=== PATIENT | male | born 1990 | race American Indian/Alaskan Native ===

== ENCOUNTER 2016-05-15 03:57 | Emergency (ER) | payer OTHER ==
[2016-05-15 05:06] VITALS: BP 122/63
[2016-05-15] MEDS ORDERED: XYLOCAINE 1% MPF 5 mL INFILTRATI ONE (08:15)
--- NOTE | 2016-05-15 08:15 | Emergency Department Report ---
Abscess Boil HPI - HPI Chief Complaint: Skin/Abscess/Foreign Body Stated Complaint: ARM PAIN Time Seen by Provider: 05/15/16 08:07 Duration: 3 Days Location: Other (left axilla) Severity: Moderate History: Yes Pain (left axilla abscess), Yes Previous History (similar incident 1 month ago), No Fever, No Purulent Drainage, No Numbness, No Foreign Body, No Insect Bite HPI: Patient here reports he has abscess klt armpit that makes it hard to lift his arm. He denies any fever or chills. Him and incidental 1 month ago. Said he's been shaven any thinks this with causes it. Denies any [id number] medication. Home Medications: Previous Rx's Medication Instructions Recorded Last Taken Type Ciprofloxacin HCl [Ciloxan 0.3%] 2 drop OP Q4H #1 bottle 11/20/13 Unknown Rx HYDROcodone/APAP 5-325 [[place] 1 each PO Q6HR PRN #14 tablet 11/20/13 Unknown Rx 5/325] Ibuprofen [Motrin] 600 mg PO Q8H PRN #15 tablet 05/15/16 Unknown Rx Sulfamethoxazole/Trimethoprim 1 each PO BID #20 tablet 05/15/16 Unknown Rx [Bactrim DS TAB] Allergies/Adverse Reactions: Allergies Allergy/AdvReac Type Severity Reaction Status Date / Time No Known Allergies Allergy Unverified 03/29/13 03:28 ED Review of Systems ROS: Stated complaint: ARM PAIN Other details as noted in HPI Comment: All other systems reviewed and negative Constitutional: denies: chills, fever Respiratory: no symptoms reported Cardiovascular: denies: chest pain, palpitations, edema, syncope Musculoskeletal: denies: back pain, arthralgia Skin: other (abscess) ED Past Medical Hx - Past Medical History Previous Medical History?: Yes Hx Asthma: Yes - Surgical History Past Surgical History?: Yes Additional Surgical History: tonsilectomy - Family History Family history: no significant - Social History Smoking Status: Never Smoker Substance Use Type: Alcohol - Medications Home Medications: Home Medications Medication Instructions Recorded Confirmed Last Taken Type Ciprofloxacin HCl [Ciloxan 0.3%] 2 drop OP Q4H #1 bottle 11/20/13 Unknown Rx HYDROcodone/APAP 5-325 [[place] 1 each PO Q6HR PRN #14 tablet 11/20/13 Unknown Rx 5/325] Ibuprofen [Motrin] 600 mg PO Q8H PRN #15 tablet 05/15/16 Unknown Rx Sulfamethoxazole/Trimethoprim 1 each PO BID #20 tablet 05/15/16 Unknown Rx [Bactrim DS TAB] ED Abscess Boil Physical Exam - Exam General: Vital signs noted. No distress. Alert and acting appropriately. Size: 2 cm Exam: Yes Tenderness (left axilla), Yes Fluctuance (LT axilla), Yes Surrounding Cellulites/Erythema (LT axilla), Yes Normal Neurologic Exam, Yes Normal Circulation, No Lymphangitis, No Crepitation, No Heart Murmur Exam: Lungs: Clear to auscultate bilaterally no rhonchi wheezes or rales. EXT: No clubbing, cyanosis or edema. +2 pulses in all extremities. CV: Sinus bradycardia 52 and asymptomatic. S1 and S2. No murmur I & D Note - I & D Note I & D Note: Procedure note for incision and drainage: 2 x 2 centimeter abscess drained at left axilla. Area cleansed with iodine followed by normal saline. # 22-gauge needle used to inject 3 cc of lidocaine. #11 blade used make small 1 cm incision. Very scant amount of serous drainage noted. Iodoform packing placed all of by dry sterile dressing. Tetanus vaccine up-to-date. ED Course Vital Signs 05/15/16 05:03 Temperature 98.2 F Pulse Rate 52 L Respiratory 18 Rate Blood Pressure 122/63 O2 Sat by Pulse 99 Oximetry - Reevaluation(s) Reevaluation #1: 05/15/16 08:36 Patient stable see note for incision and drainage 05/15/16 08:36 Critical care attestation.: If time is entered above; I have spent that time in minutes in the direct care of this critically ill patient, excluding procedure time. ED Medical Decision Making - Medical Decision Making ED course: Procedure note for incision and drainage procedure. Informed to return to emergency room in 4 days for removal of packing and reevaluation of abscess. I instructed him if abscess increased in size, increased pain and if he develops fever to return to the emergency room otherwise apply warm compresses to site 3-4 times a day and to keep packing in place. She voices understanding of discharge instruction and discharged home with prescription for Bactrim and Motrin ED Disposition Clinical Impression: Simple abscess, Cellulitis of axilla, left Disposition: DISCHARGED TO HOME OR SELFCARE Is pt being admited?: No Does the pt Need Aspirin: No Condition: Stable Instructions: Abscess Incision and Drainage (ED), Cellulitis (ED) Additional Instructions: return to the emergency room and 3-4 days for reevaluation of abscess and for packing removal. Take antibiotic as prescribed. Keep affected area clean and dry. Apply warm compresses to affected area 3-4 times a day. Prescriptions: Sulfamethoxazole/Trimethoprim [Bactrim DS TAB] 1 each PO BID #20 tablet Ibuprofen [Motrin] 600 mg PO Q8H PRN #15 tablet PRN Reason: Pain Referrals: PRIMARY CARE [Primary Care Provider] - 05/20/16 Forms: Work/School Release Form(ED)
== END 2016-05-15 08:54 | disposition home or self-care (01) ==
LOC: ED 03:57
DX: L02.412 Cutaneous abscess of left axilla (principal); J45.909 Unspecified asthma, uncomplicated; Z90.89 Acquired absence of other organs

== ENCOUNTER 2019-06-15 23:17 | Emergency (ER) | payer SELFPAY ==
[2019-06-16 01:34] LABS: Basophils % (Auto) 0.1 % (0.0-1.8); Eosinophils # (Auto) 0.2 K/mm3 (0.0-0.4); Eosinophils % (Auto) 2.6 % (0.0-4.3); Hematocrit 41.8 % (35.5-45.6); Hemoglobin 13.3 gm/dl (11.8-15.2); Lymphocytes # (Auto) 2.7 K/mm3 (1.2-5.4); Lymphocytes % (Auto) 35.7 % (13.4-35.0); Mean Corpuscular HGB Conc 32 % (32-34); Mean Corpuscular Volume 79 fl (84-94); Monocytes # (Auto) 0.8 K/mm3 (0.0-0.8); Monocytes % (Auto) 10.3 % (0.0-7.3); Platelet Count 107 K/mm3 (140-440); Red Cell Distribution Width 14.1 % (13.2-15.2)
[2019-06-16 02:00] LABS: Alanine Aminotransferase 20 units/L (7-56); Albumin 4.3 g/dL (3.9-5); BUN/Creatinine Ratio 9; Blood Urea Nitrogen 10 mg/dL (9-20); Calcium 9.3 mg/dL (8.4-10.2); Hemolysis Index 17
[2019-06-16 03:11] LABS: Bacteria,Urine 1+ /HPF (Negative); Bilirubin,Urine NEG (Negative); Blood,Urine NEG (Negative); Color,Urine Yellow (Yellow); Mucus,Urine 3+ /HPF; Protein,Urine <15 mg/dL mg/dL (Negative); WBC,Urine < 1.0 /HPF (0.0-6.0)
[2019-06-16 05:38] VITALS: BP 112/42
--- NOTE | 2019-06-16 06:16 | Emergency Department Report ---
<ALEXIS AMBRIZ - Last Filed: 06/16/19 06:07> ED General Adult HPI - General Chief complaint: Nausea/Vomiting/Diarrhea Stated complaint: NAUSEA DIARRHEA LT EYE REDNESS Time Seen by Provider: 06/16/19 05:35 Source: patient Mode of arrival: Ambulatory Limitations: No Limitations - History of Present Illness Initial comments: 28-year-old -[place] male patient with history of glaucoma presents with complaints of left eye redness and irritation yesterday and nausea/vomiting/diarrhea 2 days ago. Patient states his nausea vomiting and diarrhea resolved after 24 hours and denies any further episodes within the past 24 hours. He denies any abdominal pain, fever, hematochezia/melena, hematemesis/coffee ground emesis, vision changes, headache, or purulent drainage from his eye. He does report he is a contact wearer in that he dropped his contact on the ground yesterday and put it back into his eye. He admits to mild photophobia. He rates his pain as a 3/10 in severity. Patient states he has not uses Lumigan for his glaucoma in over 3 months. He states he is not currently following with an eye doctor. - Related Data Previous Rx's Medication Instructions Recorded Last Taken Type Ciprofloxacin HCl [Ciloxan 0.3%] 2 drop OP Q4H #1 bottle 11/20/13 Unknown Rx HYDROcodone/APAP 5-325 [[place] 1 each PO Q6HR PRN #14 tablet 11/20/13 Unknown Rx 5/325] Ibuprofen [Motrin] 600 mg PO Q8H PRN #15 tablet 05/15/16 Unknown Rx Sulfamethoxazole/Trimethoprim 1 each PO BID #20 tablet 05/15/16 Unknown Rx [Bactrim DS TAB] Albuterol INH(or & Nicu Only) 2 puff IH Q4HR PRN #1 inhalation 03/30/18 Unknown Rx [ProAir HFA Inhaler] Azithromycin [Zithromax Z-MARYSOL] 250 mg PO DAILY #6 tablet 03/30/18 Unknown Rx Codeine Phosphate/Guaifenesin 240 ml PO Q8HR PRN #240 liquid 03/30/18 Unknown Rx [Guaifenesin-Codeine Syrup] Ibuprofen [Motrin] 800 mg PO Q8HR PRN #30 tablet 03/30/18 Unknown Rx Bimatoprost [Lumigan 0.01%] 1 drop OP QPM 30 Days #1 bottle 06/16/19 Unknown Rx Ofloxacin 0.3% [Floxin 0.3% Otic] 1 drop OT QID 7 Days #1 bottle 06/16/19 Un known Rx Allergies Allergy/AdvReac Type Severity Reaction Status Date / Time No Known Allergies Allergy Verified 06/15/19 23:27 ED Review of Systems Comment: All other systems reviewed and negative ENT: as per HPI Gastrointestinal: as per HPI ED Past Medical Hx - Past Medical History Previous Medical History?: Yes Hx Asthma: Yes (as child) Additional medical history: Glaucoma, keratacoma - Surgical History Past Surgical History?: Yes Additional Surgical History: tonsilectomy - Social History Smoking Status: Current Every Day Smoker - Medications Home Medications: Home Medications Medication Instructions Recorded Confirmed Last Taken Type Ciprofloxacin HCl [Ciloxan 0.3%] 2 drop OP Q4H #1 bottle 11/20/13 Unknown Rx HYDROcodone/APAP 5-325 [[place] 1 each PO Q6HR PRN #14 tablet 11/20/13 Unknown Rx 5/325] Ibuprofen [Motrin] 600 mg PO Q8H PRN #15 tablet 05/15/16 Unknown Rx Sulfamethoxazole/Trimethoprim 1 each PO BID #20 tablet 05/15/16 Unknown Rx [Bactrim DS TAB] Albuterol INH(or & Nicu Only) 2 puff IH Q4HR PRN #1 inhalation 03/30/18 Unknown Rx [ProAir HFA Inhaler] Azithromycin [Zithromax Z-MARYSOL] 250 mg PO DAILY #6 tablet 03/30/18 Unknown Rx Codeine Phosphate/Guaifenesin 240 ml PO Q8HR PRN #240 liquid 03/30/18 Unknown Rx [Guaifenesin-Codeine Syrup] Ibuprofen [Motrin] 800 mg PO Q8HR PRN #30 tablet 03/30/18 Unknown Rx Bimatoprost [Lumigan 0.01%] 1 drop OP QPM 30 Days #1 bottle 06/16/19 Unknown Rx Ofloxacin 0.3% [Floxin 0.3% Otic] 1 drop OT QID 7 Days #1 bottle 06/16/19 Unknown Rx ED Physical Exam - General Limitations: No Limitations General appearance: alert, in no apparent distress - Head Head exam: Present: atraumatic, normocephalic - Eye Eye exam: Present: PERRL, EOMI (no pain with movements), conjunctival injection (left). Absent: scleral icterus, periorbital swelling, periorbital tenderness - Expanded Eye Exam Expanded IOP measured with: other (patient refuses Bernard-Pen exam and fluorescein stain of the left eye) - ENT ENT exam: Present: mucous membranes moist - Respiratory Respiratory exam: Present: normal lung sounds bilaterally. Absent: respiratory distress - Cardiovascular Cardiovascular Exam: Present: regular rate, normal rhythm - GI/Abdominal GI/Abdominal exam: Present: soft, normal bowel sounds. Absent: distended, tenderness, guarding, rebound, rigid - Neurological Exam Neurological exam: Present: alert, oriented X3, normal gait - Psychiatric Psychiatric exam: Present: normal affect, normal mood - Skin Skin exam: Present: warm, dry, intact, normal color. Absent: rash ED Medical Decision Making - Lab Data Result diagrams: 06/16/19 01:14 06/16/19 01:14 Lab Results 06/16/19 06/16/19 06/16/19 Range/Units 01:14 01:14 02:30 WBC 7.4 (4.5-11.0) K/mm3 RBC 5.30 H (3.65-5.03) M/mm3 Hgb 13.3 (11.8-15.2) gm/dl Hct 41.8 (35.5-45.6) % MCV 79 L (84-94) fl MCH 25 L (28-32) pg MCHC 32 (32-34) % RDW 14.1 (13.2-15.2) % Plt Count 107 L (140-440) K/mm3 Lymph % (Auto) 35.7 H (13.4-35.0) % Dent % (Auto) 10.3 H (0.0-7.3) % Eos % (Auto) 2.6 (0.0-4.3) % Baso % (Auto) 0.1 (0.0-1.8) % Lymph # 2.7 (1.2-5.4) K/mm3 Dent # 0.8 (0.0-0.8) K/mm3 Eos # 0.2 (0.0-0.4) K/mm3 Baso # 0.0 (0.0-0.1) K/mm3 Seg Neutrophils % 51.3 (40.0-70.0) % Seg Neutrophils # 3.8 (1.8-7.7) K/mm3 Sodium 141 (137-145) mmol/L Potassium 4.5 (3.6-5.0) mmol/L Chloride 103.0 (98-107) mmol/L Carbon Dioxide 28 (22-30) mmol/L Anion Gap 15 mmol/L BUN 10 (9-20) mg/dL Creatinine 1.1 (0.8-1.5) mg/dL Estimated GFR > 60 ml/min BUN/Creatinine Ratio 9 % Glucose 101 H (75-100) mg/dL Calcium 9.3 (8.4-10.2) mg/dL Total Bilirubin 0.80 (0.1-1.2) mg/dL AST 25 (5-40) units/L ALT 20 (7-56) units/L Alkaline Phosphatase 57 (35-129) units/L Total Protein 7.1 (6.3-8.2) g/dL Albumin 4.3 (3.9-5) g/dL Albumin/Globulin Ratio 1.5 % Lipase 52 (13-60) units/L Urine Color Yellow (Yellow) Urine Turbidity Clear (Clear) Urine pH 5.0 (5.0-7.0) Ur Specific [place] 1.027 (1.003-1.030) Urine Protein <15 mg/dl (Negative) mg/dL Urine Glucose (UA) Neg (Negative) mg/dL Urine Ketones Neg (Negative) mg/dL Urine Blood Neg (Negative) Urine Nitrite Neg (Negative) Urine Bilirubin Neg (Negative) Urine Urobilinogen 2.0 (<2.0) mg/dL Ur Leukocyte Esterase Neg (Negative) Urine WBC (Auto) < 1.0 (0.0-6.0) /HPF Urine RBC (Auto) 2.0 (0.0-6.0) /HPF Urine Bacteria (Auto) 1+ (Negative) /HPF Urine Mucus 3+ /HPF - Medical Decision Making 28-year-old -[place] male patient with history of glaucoma presents with complaints of left eye redness and irritation yesterday and nausea/vomiting/diarrhea 2 days ago. Patient states his nausea vomiting and diarrhea resolved after 24 hours and denies any further episodes within the past 24 hours. CBC and CMP are normal. Vitals are normal. He is nontoxic appearing. Conjunctival injection of left are noted on exam without obvious trauma. No surrounding cellulitic changes noted. Discussed need for fluorescein stain to rule out corneal abrasion and need for Bernard-Pen examination to rule out increased ocular pressure-patient declined stating he is not able to stay for these examinations. Given onset of symptoms right after patient dropped his contact on the ground in place contact back into his eye, symptoms are likely due to conjunctivitis or corneal abrasion. Discussed the importance of follow-up with ophthalmology within the next 24 hours. Patient given a prescription for ofloxacin and his Lumigan. Patient instructed to discontinue wearing his contacts until his symptoms resolve and he is evaluated by ophthalmology. Strict return precautions were discussed in great detail with patient verbalizes understanding. ED Disposition Disposition: DC-01 TO HOME OR SELFCARE Is pt being admited?: No Condition: Stable Instructions: Conjunctivitis (ED), Glaucoma (ED), Food Poisoning (ED) Prescriptions: Ofloxacin 0.3% [Floxin 0.3% Otic] 1 drop OT QID 7 Days #1 bottle Bimatoprost [Lumigan 0.01%] 1 drop OP QPM 30 Days #1 bottle Referrals: PRIMARY CAREMD [Primary Care Provider] - 2-3 Days RAFIA WOLF MD [Staff Physician] - 24 Hours Forms: Accompanied Note, Work/School Release Form(ED) <HOSEA BESNON - Last Filed: 06/18/19 15:46> ED Review of Systems ROS: Stated complaint: NAUSEA DIARRHEA LT EYE REDNESS Other details as noted in HPI ED Course Vital Signs 06/15/19 06/16/19 23:29 06:28 Temperature 97.4 F L Pulse Rate 58 L 53 L Respiratory 16 16 Rate Blood Pressure 112/42 O2 Sat by Pulse 98 99 Oximetry ED Medical Decision Making - Lab Data Result diagrams: 06/16/19 01:14 06/16/19 01:14 - Medical Decision Making received call from pharmacy. Pt given an otic script and needs an optic script. This was changed via phone with pharmacy. chart has not yet been finalized for my review. Critical care attestation.: If time is entered above; I have spent that time in minutes in the direct care of this critically ill patient, excluding procedure time.
== END 2019-06-16 06:28 | disposition home or self-care (01) ==
LOC: ED 23:17
DX: H10.9 Unspecified conjunctivitis (principal); R11.2 Nausea with vomiting, unspecified; R19.7 Diarrhea, unspecified; J45.909 Unspecified asthma, uncomplicated; F17.200 Nicotine dependence, unspecified, uncomplicated; Z79.899 Other long term (current) drug therapy; Z98.890 Other specified postprocedural states
CPT/HCPCS: 36415; 80053; 81001; 83690; 85025

== ENCOUNTER 2021-01-14 16:35 | Emergency (ER) | payer BC ==
[2021-01-14 17:23] VITALS: BP 120/67
--- NOTE | 2021-01-14 17:36 | Emergency Department Report ---
ED ENT HPI - General Chief complaint: Dental/Oral Stated complaint: ABSESS BURST IN MOUTH SWELLING Time Seen by Provider: 01/14/21 17:29 Source: patient Mode of arrival: Ambulatory Limitations: No Limitations - History of Present Illness Initial comments: CC: I have a tooth abscess HPI: This is a healthy 30 yo male with hx of childhood asthma who presents with left gum pain swelling since this morning. 6/10 pain,radiaitng to left jaw. Denies difficulty swallowing or breathing. No facial swelling. He tasted blood at the area. He has had extensive dental work at the beginning of the year. Dental insurance "ran out". He still requires root canals and wisdom teeth extraction. MD complaint: tooth pain -: Gradual, This morning Location: tooth # (teeth 13-15) Severity: moderate Severity scale (0 -10): 6 Quality: aching, dull Consistency: constant Improves with: pressure Worsens with: none Context- Dental: history of dental caries - Related Data Previous Rx's Medication Instructions Recorded Last Taken Type Ciprofloxacin HCl [Ciloxan 0.3%] 2 drop OP Q4H #1 bottle 11/20/13 Unknown Rx HYDROcodone/APAP 5-325 [[place] 1 each PO Q6HR PRN #14 tablet 11/20/13 Unknown Rx 5/325] Ibuprofen [Motrin] 600 mg PO Q8H PRN #15 tablet 05/15/16 Unknown Rx Sulfamethoxazole/Trimethoprim 1 each PO BID #20 tablet 05/15/16 Unknown Rx [Bactrim DS TAB] Albuterol Mdi (or & Nicu Only) 2 puff IH Q4HR PRN #1 inhalation 03/30/18 Unknown Rx [ProAir HFA Inhaler] Azithromycin [Zithromax Z-MARYSOL] 250 mg PO DAILY #6 tablet 03/30/18 Unknown Rx Codeine Phosphate/Guaifenesin 240 ml PO Q8HR PRN #240 liquid 03/30/18 Unknown Rx [Guaifenesin-Codeine Syrup] Ibuprofen [Motrin] 800 mg PO Q8HR PRN #30 tablet 03/30/18 Unknown Rx Bimatoprost [Lumigan 0.01%] 1 drop OP QPM 30 Days #1 bottle 06/16/19 Unknown Rx Ofloxacin 0.3% [Floxin 0.3% Otic] 1 drop OT QID 7 Days #1 bottle 06/16/19 Unknown Rx Clindamycin [Clindamycin CAP] 300 mg PO TID 10 Days #30 cap 01/14/21 Unknown Rx Ibuprofen [Motrin 800 MG tab] 800 mg PO Q8HR PRN #15 tablet 01/14/21 Unknown Rx Allergies Allergy/AdvReac Type Severity Reaction Status Date / Time No Known Allergies Allergy Verified 06/15/19 23:27 ED Dental HPI - General Chief complaint: Dental/Oral Stated complaint: ABSESS BURST IN MOUTH SWELLING Time Seen by Provider: 01/14/21 17:29 Source: patient Mode of arrival: Ambulatory Limitations: No Limitations - Related Data Previous Rx's Medication Instructions Recorded Last Taken Type Ciprofloxacin HCl [Ciloxan 0.3%] 2 drop OP Q4H #1 bottle 11/20/13 Unknown Rx HYDROcodone/APAP 5-325 [[place] 1 each PO Q6HR PRN #14 tablet 11/20/13 Unknown Rx 5/325] Ibuprofen [Motrin] 600 mg PO Q8H PRN #15 tablet 05/15/16 Unknown Rx Sulfamethoxazole/Trimethoprim 1 each PO BID #20 tablet 05/15/16 Unknown Rx [Bactrim DS TAB] Albuterol Mdi (or & Nicu Only) 2 puff IH Q4HR PRN #1 inhalation 03/30/18 Unknown Rx [ProAir HFA Inhaler] Azithromycin [Zithromax Z-MARYSOL] 250 mg PO DAILY #6 tablet 03/30/18 Unknown Rx Codeine Phosphate/Guaifenesin 240 ml PO Q8HR PRN #240 liquid 03/30/18 Unknown Rx [Guaifenesin-Codeine Syrup] Ibuprofen [Motrin] 800 mg PO Q8HR PRN #30 tablet 03/30/18 Unknown Rx Bimatoprost [Lumigan 0.01%] 1 drop OP QPM 30 Days #1 bottle 06/16/19 Unknown Rx Ofloxacin 0.3% [Floxin 0.3% Otic] 1 drop OT QID 7 Days #1 bottle 06/16/19 Unknown Rx Clindamycin [Clindamycin CAP] 300 mg PO TID 10 Days #30 cap 01/14/21 Unknown Rx Ibuprofen [Motrin 800 MG tab] 800 mg PO Q8HR PRN #15 tablet 01/14/21 Unknown Rx Allergies Allergy/AdvReac Type Severity Reaction Status Date / Time No Known Allergies Allergy Verified 06/15/19 23:27 ED Review of Systems ROS: Stated complaint: ABSESS BURST IN MOUTH SWELLING Other details as noted in HPI Constitutional: denies: fever ENT: denies: ear pain, throat pain Respiratory: denies: cough, shortness of breath Cardiovascular: denies: chest pain Gastrointestinal: denies: abdominal pain, nausea, vomiting ED Past Medical Hx - Past Medical History Previous Medical History?: Yes Hx Asthma: Yes (as child) Additional medical history: Glaucoma, keratacoma - Surgical History Past Surgical History?: Yes Additional Surgical History: tonsilectomy - Social History Smoking Status: Current Every Day Smoker - Medications Home Medications: Home Medications Medication Instructions Recorded Confirmed Last Taken Type Ciprofloxacin HCl [Ciloxan 0.3%] 2 drop OP Q4H #1 bottle 11/20/13 Unknown Rx HYDROcodone/APAP 5-325 [[place] 1 each PO Q6HR PRN #14 tablet 11/20/13 Unknown Rx 5/325] Ibuprofen [Motrin] 600 mg PO Q8H PRN #15 tablet 05/15/16 Unknown Rx Sulfamethoxazole/Trimethoprim 1 each PO BID #20 tablet 05/15/16 Unknown Rx [Bactrim DS TAB] Albuterol Mdi (or & Nicu Only) 2 puff IH Q4HR PRN #1 inhalation 03/30/18 Unknown Rx [ProAir HFA Inhaler] Azithromycin [Zithromax Z-MARYSOL] 250 mg PO DAILY #6 tablet 03/30/18 Unknown Rx Codeine Phosphate/Guaifenesin 240 ml PO Q8HR PRN #240 liquid 03/30/18 Unknown Rx [Guaifenesin-Codeine Syrup] Ibuprofen [Motrin] 800 mg PO Q8HR PRN #30 tablet 03/30/18 Unknown Rx Bimatoprost [Lumigan 0.01%] 1 drop OP QPM 30 Days #1 bottle 06/16/19 Unknown Rx Ofloxacin 0.3% [Floxin 0.3% Otic] 1 drop OT QID 7 Days #1 bottle 06/16/19 Unknown Rx Clindamycin [Clindamycin CAP] 300 mg PO TID 10 Days #30 cap 01/14/21 Unknown Rx Ibuprofen [Motrin 800 MG tab] 800 mg PO Q8HR PRN #15 tablet 01/14/21 Unknown Rx ED Physical Exam - General Limitations: No Limitations General appearance: alert, in no apparent distress - Head Head exam: Present: atraumatic, normocephalic, normal inspection (No facial swelling no) - Eye Eye exam: Present: normal appearance - ENT ENT exam: Present: other (Extensive dental decay teeth numbers 13-15 with necrotic appearing nodes mild gum swelling,) - Neck Neck exam: Present: normal inspection, full ROM. Absent: tenderness, meningismus - Respiratory Respiratory exam: Absent: respiratory distress - GI/Abdominal GI/Abdominal exam: Present: soft. Absent: distended, tenderness, guarding, rebound - Rectal Rectal exam: Present: deferred - Extremities Exam Extremities exam: Present: normal inspection - Neurological Exam Neurological exam: Present: alert, oriented X3 - Psychiatric Psychiatric exam: Present: normal affect, normal mood - Skin Skin exam: Present: warm, dry, intact, normal color. Absent: rash ED Course Vital Signs 01/14/21 17:21 Temperature 98.2 F Pulse Rate 59 L Respiratory 18 Rate Blood Pressure 120/67 [Right] O2 Sat by Pulse 98 Oximetry ED Medical Decision Making - Medical Decision Making Odontogenic infection, dental abscess involving teeth 13-15, no facial cellulitis, no neck involvement. No involvement of the submandibular soft tissue region Prescription for clindamycin and ibuprofen. Patient will see his primary personal dentist tomorrow. Critical care attestation.: If time is entered above; I have spent that time in minutes in the direct care of this critically ill patient, excluding procedure time. ED Disposition Clinical Impression: Dental abscess, Dental caries Disposition: HOME / SELF CARE / HOMELESS Is pt being admited?: No Does the pt Need Aspirin: No Condition: Stable Instructions: Dental Abscess, [id number] Prescriptions: Clindamycin [Clindamycin CAP] 300 mg PO TID 10 Days #30 cap Ibuprofen [Motrin 800 MG tab] 800 mg PO Q8HR PRN #15 tablet PRN Reason: Pain , Severe (7-10) Forms: Work/School Release Form(ED)
== END 2021-01-14 17:40 | disposition home or self-care (01) ==
LOC: ED 16:35
DX: K04.7 Periapical abscess without sinus (principal); K02.9 Dental caries, unspecified; J45.909 Unspecified asthma, uncomplicated; H40.9 Unspecified glaucoma; Z98.890 Other specified postprocedural states; F17.200 Nicotine dependence, unspecified, uncomplicated
CPT/HCPCS: 99281

== ENCOUNTER 2021-12-13 12:21 | Emergency (ER) | payer BC ==
[2021-12-13 12:59] VITALS: BP 126/72
--- NOTE | 2021-12-13 13:13 | Emergency Department Report ---
Minor Respiratory - HPI Chief Complaint: Sore Throat Stated Complaint: SORE THROAT/FACE SWOLLEN Time Seen by Provider: 12/13/21 13:10 Duration: 2 Days Pain Location: Throat Severity: mild Minor Respiratory: Yes Sore Throat, Yes Able to Tolerate Fluids, No Rhinorrhea, No Ear Pain, No Cough, No Sick Contacts, No Hemoptysis, No Chest Pain, No Shortness of Breath, No Fever Other History: Mr. David is a 31-year-old male that comes to the emergency room complaining of left-sided face pain. He states that this occurred after being elbowed while playing basketball the other day. He states that he fractured a lower left mandibular tooth. However, he is having left maxillary pain. There is no swelling over the maxillary area. There is mild swelling of the mandibular area. He is also complaining of a sore throat which started at the same time. He does have throat redness. He has no fever or chills. Denies cough. ED Review of Systems ROS: Stated complaint: SORE THROAT/FACE SWOLLEN Other details as noted in HPI Comment: All other systems reviewed and negative ED Past Medical Hx - Past Medical History Previous Medical History?: Yes Hx Asthma: Yes (as child) Additional medical history: Glaucoma, keratacoma - Surgical History Past Surgical History?: Yes Additional Surgical History: tonsilectomy - Family History Family history: no significant - Social History Smoking Status: Current Every Day Smoker Substance Use Type: Alcohol - Medications Home Medications: Home Medications Medication Instructions Recorded Confirmed Last Taken Type Ciprofloxacin HCl [Ciloxan 0.3%] 2 drop OP Q4H #1 bottle 11/20/13 Unknown Rx HYDROcodone/APAP 5-325 [[place] 1 each PO Q6HR PRN #14 tablet 11/20/13 Unknown Rx 5/325] Ibuprofen [Motrin] 600 mg PO Q8H PRN #15 tablet 05/15/16 Unknown Rx Sulfamethoxazole/Trimethoprim 1 each PO BID #20 tablet 05/15/16 Unknown Rx [Bactrim DS TAB] Albuterol Mdi (or & Nicu Only) 2 puff IH Q4HR PRN #1 inhalation 03/30/18 Unknown Rx [ProAir HFA Inhaler] Azithromycin [Zithromax Z-MARYSOL] 250 mg PO DAILY #6 tablet 03/30/18 Unknown Rx Codeine Phosphate/Guaifenesin 240 ml PO Q8HR PRN #240 liquid 03/30/18 Unknown Rx [Guaifenesin-Codeine Syrup] Ibuprofen [Motrin] 800 mg PO Q8HR PRN #30 tablet 03/30/18 Unknown Rx Bimatoprost [Lumigan 0.01%] 1 drop OP QPM 30 Days #1 bottle 06/16/19 Unknown Rx Ofloxacin 0.3% [Floxin 0.3% Otic] 1 drop OT QID 7 Days #1 bottle 06/16/19 Unknown Rx Clindamycin [Clindamycin CAP] 300 mg PO TID 10 Days #30 cap 01/14/21 Unknown Rx Ibuprofen [Motrin 800 MG tab] 800 mg PO Q8HR PRN #15 tablet 01/14/21 Unknown Rx Amoxicillin [Trimox CAP] 500 mg PO BID #20 capsule 12/13/21 Unknown Rx Ibuprofen [Motrin] 800 mg PO Q8HR PRN #30 tablet 12/13/21 Unknown Rx Minor Respiratory Exam - Exam General: Vital signs noted. No distress. Alert and acting appropriately. HEENT: Yes Moist Mucous Membranes, No Pharyngeal Erythema, No Pharyngeal Exudates, No Rhinorrhea, No Conjuctival Injection, No Frontal Tenderness, No Maxillary Tenderness Ear: Neither TM Bulge, Neither TM Erythema, Neither EAC Pain, Neither EAC Discharge Neck: Yes Supple, No Adenopathy Lungs: Yes Good Air Exchange, No Wheezes, No Ronchi, No Stridor, No Cough, No Labored Respirations, No Retractions, No Use of Accessory Muscles, No Other Abnormal Lung Sounds Heart: Yes Regular, No Murmur Abdomen: Yes Normal Bowel Sounds, No Tenderness, No Peritoneal Signs Skin: No Rash, No Edema Neurologic: Alert and oriented, no deficits. Musculoskeletal: Unremarkable. Mild maxillary left-sided facial swelling. Fractured lower left first molar tooth. No abscess. No trismus. No Ludewig's. No pharyngeal abscess. No midface instability ED Course Vital Signs 12/13/21 12:55 Temperature 97.4 F L Pulse Rate 50 L Respiratory 18 Rate Blood Pressure 126/72 [Left] O2 Sat by Pulse 98 Oximetry ED Medical Decision Making - Radiology Data Radiology results: report reviewed, image reviewed No fracture - Medical Decision Making CT scan negative for facial fracture. Given that the throat is red and the patient is complaining of dental pain and treating with with amoxicillin. He will take as needed Motrin and Tylenol for pain. Patient is ambulatory, not ill nontoxic on exam. Patient being discharged home with discharge plan of care including diet, medications, activity and follow-up. He verbalizes understanding of plan of care. Vital Signs 12/13/21 12:55 Temperature 97.4 F L Pulse Rate 50 L Respiratory 18 Rate Blood Pressure 126/72 [Left] O2 Sat by Pulse 98 Oximetry - Differential Diagnosis Rule out fracture given trauma, pharyngitis, abscess, dental fracture Critical care attestation.: If time is entered above; I have spent that time in minutes in the direct care of this critically ill patient, excluding procedure time. ED Disposition Clinical Impression: Pain, dental, Contusion of face Pharyngitis Qualifiers: Pharyngitis/tonsillitis etiology: unspecified etiology Qualified Code(s): J02.9 - Acute pharyngitis, unspecified Disposition: 01 HOME / SELF CARE / HOMELESS Is pt being admited?: No Does the pt Need Aspirin: No Condition: Stable Instructions: Sore Throat Additional Instructions: MED ORDERED UNTIL GONE MOTRIN OR TYLENOL FOR PAIN FOLLOW UP WITH DENTIST RABIA Prescriptions: Ibuprofen [Motrin] 800 mg PO Q8HR PRN #30 tablet PRN Reason: Pain, Moderate (4-6) Amoxicillin [Trimox CAP] 500 mg PO BID #20 capsule Referrals: VELMA FUENTES MD [Primary Care Provider] - 3-5 Days [facility] [Outside] - 3-5 Days [facility] [Outside] - 3-5 Days Forms: Work/School Release Form(ED) Time of Disposition: 14:39
--- NOTE | 2021-12-13 14:34 | Cat Scan Report ---
CT MAXILLOFACIAL WITHOUT CONTRAST INDICATION / CLINICAL INFORMATION: l facial pain. TECHNIQUE: All CT scans at this location are performed using CT dose reduction for ALARA by means of automated e xposure control. COMPARISON: None available. FINDINGS: FACIAL BONES: The orbital sutton, sinuses and zygomatic arches appear intact without CT evidence of ac fabrizio fracture of the facial bones. PARANASAL SINUSES: There is minimal mucosal thickening within the maxillary sinuses. The remaining pa ranasal sinuses are clear without air-fluid levels at. There is slight deviation nasal septum toward the left. The mastoid air cells and middle ear cavities are pneumatized. ORBITS: The optic globes demonstrate appropriate size and configuration. No significant post septal i nflammatory changes ADDITIONAL FINDINGS: The multiple a digitally carries along with scattered lucency along the roots of the visualized teeth at. However, no significant surrounding soft tissue inflammatory changes are id entified. IMPRESSION: 1. There is no CT evidence of acute fracture involving the facial bones Signer Name: Ignacio Thomas MD Signed: 12/13/2021 2:30 PM Workstation Name: [id number]
[2021-12-13] MEDS ORDERED: IBUPROFEN 800 MG TAB PO ONE (14:43)
== END 2021-12-13 14:45 | disposition home or self-care (01) ==
LOC: ED 12:21
DX: S00.83XA Contusion of other part of head, initial encounter (principal); K08.89 Other specified disorders of teeth and supporting structures; F17.200 Nicotine dependence, unspecified, uncomplicated; F10.20 Alcohol dependence, uncomplicated; J45.909 Unspecified asthma, uncomplicated; J02.9 Acute pharyngitis, unspecified; X58.XXXA Exposure to other specified factors, initial encounter; Y93.89 Activity, other specified; Y92.89 Other specified places as the place of occurrence of the external cause; Y99.8 Other external cause status
CPT/HCPCS: 70486; 99283

== ENCOUNTER 2022-01-10 12:25 | Emergency (ER) | payer BC | END 2022-01-10 14:04 | disposition left against medical advice (07) | LOC: ED 12:25 | DX: Z04.1 Encounter for examination and observation following transport accident (principal); Z53.21 Procedure and treatment not carried out due to patient leaving prior to being seen by health care provider; V89.2XXA Person injured in unspecified motor-vehicle accident, traffic, initial encounter; Y93.89 Activity, other specified; Y92.89 Other specified places as the place of occurrence of the external cause; Y99.8 Other external cause status ==